=== PATIENT | female | born 1965 | race Caucasian/White ===

== ENCOUNTER 2016-04-05 05:48 | Inpatient (IN) | payer BC ==
[2016-03-30 13:26] LABS: HEMATOCRIT 39.2 % (36.0-48.0); HEMOGLOBIN 13.2 g/dL (12.0-16.0)
[2016-03-31 02:45] LABS: BUN (BLOOD UREA NITROGEN) 16 MG/DL (6-23); CALCIUM, SERUM 8.8 MG/DL (8.5-10.4); CHLORIDE, SERUM 99 MMOL/L (96-112); CO2 (CARBON DIOXIDE) 28 MMOL/L (24-34); GFR AFRICAN AMERICAN 76 ML/MIN (>=60); GFR NON AFRICAN AMERICAN 66 ML/MIN (>=60); POTASSIUM, SERUM 4.4 MMOL/L (3.5-5.3); SODIUM, SERUM 137 MMOL/L (135-148)
[2016-03-31 02:46] LABS: GLUCOSE, SERUM 400 MG/DL (60-99)
--- NOTE | ~2016-04-05 | CN ---
Consultation Report [facility] [address] [place]. [address] NAME: EMILY EVERETT : 65 STATUS : ADM IN PAT#: [id number] AGE: 50 ADM/REG DATE : 04/05/16 MR#: [id number] REPORT SERV DATE: 04/06/16 DICTATED BY: OMAR MINAYA DATE: 04/05/16 REPORT STATUS : Draft TRANSCRIBED BY: MODL DATE: 04/05/16 DATE OF CONSULTATION: REASON FOR ADMISSION: L5 through S1 anterior lumbar diskectomy and fusion with L5-S1 revision by Dr. Rhodes. REASON FOR CONSULT: Diabetes management. NURSING TEACHER: Dr. Simon Grijalva. PSYCHIATRIST: Dr. Joaquin Peralta. CHIEF COMPLAINT: "I came here for back surgery." HISTORY OF PRESENT ILLNESS: A 50-year-old white female with a history of insulin-dependent diabetes with retinopathy along with hypothyroidism, hiatal hernia, bipolar disease with major depressive disorder, managed by Dr. Peralta on lithium, hyperlipidemia, presented to surgery today. Hospitalist was consulted for diabetes management. The patient states that her sugars are usually in the 170s on up, not very well controlled. She states that her last hemoglobin A1c was around 9% that was checked several months ago. She says she takes her glargine insulin usually in the morning time. She has not had any at all today and her last dose was the morning of this 04/04/2016. She has had a couple of elevated sugar readings in this hospital. Otherwise, the patient denies any chest pain, shortness of breath, fever, chills, nausea, vomiting, or diarrhea. REVIEW OF SYSTEMS: As per HPI, otherwise 10-point systems are reviewed are negative. PAST MEDICAL HISTORY: Insulin diabetes with retinopathy, goiter, hypothyroidism, hiatal hernia, bipolar disease with major depressive disorder, on lithium and citalopram, hyperlipidemia, mild nonobstructive LAD. PAST SURGICAL HISTORY: She had six trigger finger surgeries, carpal tunnel surgery, bilateral shoulder surgery, hysterectomy, breast reduction. SOCIAL HISTORY: She denies smoking. She does drink one wine cooler one to two times per week. She has just recently moved from [place], [place] in about 1-1/2 years ago with her as her children are all grown up. She is a teacher currently. FAMILY HISTORY: Multiple relatives with diabetes. ALLERGIES: NORTRIPTYLINE WHICH CAUSES A RASH. MEDICATIONS: Include Lipitor 40 mg at bedtime, Celexa 20 mg daily, insulin aspart sliding scale, insulin glargine 53 units in the morning, levothyroxine 137 mcg daily, lithium Consultation Report [facility] [address] [place]. [address] NAME: EMILY EVERETT : 65 STATUS : ADM IN PAT#: [id number] AGE: 50 ADM/REG DATE : 04/05/16 MR#: [id number] REPORT SERV DATE: 04/06/16 DICTATED BY: OMAR MINAYA DATE: 04/05/16 REPORT STATUS : Draft TRANSCRIBED BY: JESSICA DATE: 04/05/16 carbonate 450 mg daily and 450 mg at bedtime, naproxen p.r.n., Prilosec 40 mg daily, and multivitamins. PHYSICAL EXAMINATION: VITAL SIGNS: Pending. GENERAL: She is no acute distress. Alert and oriented x3. Very pleasant. HEENT: Normocephalic and atraumatic head. Extraocular muscles are intact. Oropharynx is clear. NECK: Supple. No JVD. CARDIAC: Regular rhythm. No murmurs, rubs, or gallops. PULMONARY: Clear to auscultation bilaterally. ABDOMEN: Soft, nontender. Positive bowel sounds. It is obese. EXTREMITIES: Show no clubbing, cyanosis, or edema. SKIN: Warm and dry. There is a DELIA drain. NEUROLOGIC: No focal deficits. PSYCHIATRIC: The patient is cooperative. Mood is appropriate. She is very pleasant. LABS: Shows a white blood cell count of 20,000, glucose of 286. IMPRESSION: 1. Poorly-controlled insulin-dependent diabetes with retinopathy. 2. Bipolar with major depressive disorder, on lithium and citalopram. 3. Goiter with hypothyroidism. 4. Hyperlipidemia. 5. Hiatal hernia. 6. Obesity. 7. Mild nonobstructive left anterior descending. PLAN: The plan is to restart her home insulin, but change her glargine to evening time, as she has not had any glargine in over 24 hours along with adding a sliding scale level 2 insulin with before meals and h.s. Check at before meals and h.s. We will resume her other home medications and obtain a lithium level. We will continue to follow. Thank very much for this consult. NIKKI/JESSICA Omar Minaya MD / [id number] CC: Consultation Report [address] [address] NAME: EMILY EVERETT : 65 STATUS : ADM IN PAT#: [id number] AGE: 50 ADM/REG DATE : 04/05/16 MR#: [id number] REPORT SERV DATE: 04/06/16 DICTATED BY: OMAR MINAYA DATE: 04/05/16 REPORT STATUS : Draft TRANSCRIBED BY: JESSICA DATE: 04/05/16 Aditya Rhodes, DO Simon Morris MD Stephan Becker, MD
--- NOTE | ~2016-04-05 | DS ---
Discharge Summary [facility] [address] [place]. [address] NAME: EMILY EVERETT : 65 STATUS : DIS IN PAT#: [id number] AGE: 50 ADM/REG DATE : 04/05/16 MR#: [id number] REPORT SERV DATE: 04/17/16 DICTATED BY: ADITYA RHODES DATE: 04/16/16 REPORT STATUS : Draft TRANSCRIBED BY: JESSICA DATE: 04/16/16 Data Collection from hospitalization DISCHARGE DIAGNOSES: 1. L5-S1 pseudoarthrosis with lumbar disk disease and intractable back pain. 2. Diabetes. 3. Osteoarthritis. 4. History of heart attack. 5. Cardiac murmur. 6. Depression. 7. Hypercholesterolemia. 8. Hypothyroidism. 9. Migraine headaches. 10.Gastric reflux. 11.Sleep apnea. 12.Bipolar disease. 13.Retinopathy. 14.Goiter. CONSULTATIONS: Dr. Hugo Minaya. Dr. Deon López. PROCEDURES: 1. Anterior approach retroperitoneal exposure of L5-S1, 04/05/2016. 2. Stage I removal of previously placed interbody fusion cage, L5-S1. Anterior lumbar interbody fusion, L5-S1. Placement of Medtronic PEEK cage screw construct with allograft bone matrix and bone morphogenetic protein with screws through the interbody device into the L5 and S1 vertebral bodies, stage II L5-S1 revision laminectomy, bilateral foraminotomies, removal of previously placed L5-S1, pedicle screw instrumentation, revision L5-S1, pedicle screw instrumentation bilaterally, local morcellized autograft, allograft bone matrix, use of neuromonitoring, use of intraoperative O-arm CT scan with computer navigation, 04/05/2016. PATHOLOGY: Lumbar spine removal and repair-orthopedic hardware (gross assessment). Fragmented bone cartilage and soft tissue. No evidence was seen of an infectious or neoplastic process. DISCHARGE MEDICATIONS: Lipitor 40 mg at bedtime, Celexa 20 mg daily, Flexeril 10 mg every eight hours as needed, NovoLog injection insulin as instructed, Lantus injection insulin 53 units daily subcutaneously, levothyroxine 137 mcg daily, Eskalith ER 450 mg daily and 450 mg at bedtime, Aleve 220 mg every 12 hours, Prilosec 40 mg daily, Percocet 5/325 one to two tablets every four hours as needed, vitamins as instructed. CONDITION ON DISCHARGE: Stable. DISPOSITION: The patient was discharged home on a full liquid diet with activities as instructed. She would follow up with me two weeks following discharge. She would follow up with Dr. Sunil Norman one to two weeks following discharge. Discharge Summary [facility] [address] [place]. [address] NAME: EMILY EVERETT : 65 STATUS : DIS IN PAT#: [id number] AGE: 50 ADM/REG DATE : 04/05/16 MR#: [id number] REPORT SERV DATE: 04/17/16 DICTATED BY: ADITYA RHODES DATE: 04/16/16 REPORT STATUS : Draft TRANSCRIBED BY: JESSICA DATE: 04/16/16 HOSPITAL COURSE: This is a 50-year-old female, who had undergone a previous L5-S1 transforaminal lumbar interbody fusion on 07/24/2014 in [place]. Preoperative studies had shown a right L5 loose screws that did appear to be impinging upon one of the iliac vessels on the right side with signs of pseudoarthrosis at L5-S1. Treatment options were discussed and it was elected to proceed with surgical intervention. She was admitted to the hospital at this time for further evaluation and treatment. Upon admission, she was taken to the operating room, where she underwent the above-mentioned procedure by myself and Dr. Deon López. She tolerated this well. There were no complications. Postoperatively, she was seen by Dr. Hugo Minaya. The patient said her last hemoglobin A1c was around 9% that had been checked several months prior to this admission. We were going to restart her home insulin, but changed her glargine to evening time as she has not had any glargine in over 24 hours along with adding level 2 sliding scale insulin before meals and at bedtime. We would obtain a lithium level and resume her other home medications. On postop day one, the Mcclain catheter was removed. She was evaluated by Physical Therapy. Her abdomen was soft. On 04/07/2016, she did have some nausea and vomiting. She had positive bowel sounds. She was changed to Dilaudid. Over the next couple of days, her drain was removed. She stated that her preoperative radiculopathy had improved. Reglan had been added to her regimen. Her nausea and vomiting resolved. She was doing well with physical therapy. Discharge planning was performed. She was increasing her activity level. She had not passed flatus or had a bowel movement. Dulcolax suppository was given. On 04/09/2016, she was feeling better. She was passing flatus. She was tolerating full liquids. Discharge instructions were given. Due to her improved and stable condition, she was discharged home with the above-stated instructions. Information collected by: Ani Childs I submit the above information as my discharge summary. CHAPARRO/JESSICA Aditya Rhodes DO / [id number] CC: DO Sunil Fang DO Michael Greer, M.D.
--- NOTE | ~2016-04-05 | OP ---
Record Of Operation [facility] [address] [place]. [address] NAME: EMILY EVERETT : 65 STATUS : ADM IN PAT#: [id number] AGE: 50 ADM/REG DATE : 04/05/16 MR#: [id number] REPORT SERV DATE: 04/05/16 DICTATED BY: DEON GAMINO DATE: 04/05/16 REPORT STATUS : Draft TRANSCRIBED BY: MODL DATE: 04/05/16 DATE OF PROCEDURE: 04/05/2016 PREOPERATIVE DIAGNOSIS: Per Dr. Rhodes. POSTOPERATIVE DIAGNOSIS: Per Dr. Rhodes. SURGERY PERFORMED: Anterior approach retroperitoneal exposure of L5-S1. SURGEON: Deon Gamino M.D. ASSIST: Laurie. DESCRIPTION OF PROCEDURE: The patient was placed under general endotracheal anesthesia. The abdomen was prepped and draped in sterile fashion. An incision was made left of the midline beginning just at the umbilicus and carried down to the pubis, carried through the skin and subcutaneous tissue. The anterior rectus fascia was opened left of the midline and rectus muscle retracted laterally. Retroperitoneal space was entered using blunt dissection. Retroperitoneal contents were retracted using the Bookwalter retractor. The contents were protected using wet laparotomy sponges. The L5-S1 space was exposed using the pusher and the suction tubing. The L5-S1 space was exposed. The sacral vessels doubly ligated with silk and divided. Continued dissection done underneath both iliac veins to ensure that the previously placed posterior screws and instrumentation did not impale into the iliac veins. This was inspected. Additional films were done showing that there was no evidence of injury to the iliac vein. The procedure then turned over to Dr. Rhodes. When he completed the orthopedic portion, the area was visualized. Hemostasis was achieved. Retroperitoneal contents returned to the natural position. The abdomen closed using #1 running PDS suture. A small catheter placed beneath the fascia for postoperative Marcaine infusion. Subcutaneous tissue closed with 3-0 Vicryl, skin closed with 3-0 Monocryl subcuticular suture. Sterile dressings were applied. Estimated blood loss opening and closing approximately 50 to 60 mL. Sponge and needle count correct x3, and fluoroscopy of the abdomen revealing no laparotomy sponges or instrumentation. MG/MODL Deon Gamino M.D. / [id number] CC: Aditya Rhodes DO
--- NOTE | ~2016-04-05 | PREOPHP ---
PreOp History and Physical [facility] [address] [facility] [place]. [address] NAME: EMILY EVERETT : 65 STATUS : ADM IN PAT#: [id number] AGE: 50 ADM/REG DATE : 04/05/16 MR#: [id number] REPORT SERV DATE: 04/05/16 DICTATED BY: ADITYA RHODES DATE: 04/05/16 REPORT STATUS : Draft TRANSCRIBED BY: JESSICA DATE: 04/05/16 CHIEF COMPLAINT: Back pain and bilateral lower extremity pain and paresthesias. HISTORY OF PRESENT ILLNESS: The patient is a 50-year-old who had a previous L5-S1 transforaminal lumbar interbody fusion on 07/24/2014 in [place]. Preoperative studies have shown a right L5 loose screw that does appear to be impinging upon on one of the iliac vessels on the right side with signs of pseudoarthrosis at L5-S1. After the discussion of risks and benefits, the patient elected to proceed with surgical intervention. REVIEW OF SYSTEMS: She denies chest pain, shortness of breath, or bowel or bladder changes. ALLERGIES: INCLUDE NORTRIPTYLINE. HOME MEDICATIONS: Include atorvastatin, citalopram, cyclobenzaprine, Lantus, Synthroid, lithium, NovoLog, simvastatin, and tramadol. PAST MEDICAL HISTORY: Includes osteoarthritis, history of heart attack, cardiac murmur, depression, diabetes, high cholesterol, hyperthyroidism, migraine headaches, gastric reflux, and sleep apnea. PHYSICAL EXAMINATION: VITALS: Height 5 feet 2 inches, weight 215, and BMI 39.3. GENERAL: The patient is healthy appearing, in no acute distress. PSYCH: Alert and oriented x3. Normal mood and affect. Gait is somewhat antalgic. VASCULAR: No extremity swelling. SPINE: Decreased lumbar range of motion. HEART: Regular rate and rhythm. LUNGS: Clear to auscultation. ABDOMEN: Soft, nontender, and nondistended with good bowel sounds. BREASTS AND RECTAL: Both deferred. NEUROLOGIC: Strength in the lower extremities remains intact with 5/5 motor strength bilaterally. No focal deficits. IMAGING: I have reviewed plain x-rays as well as CT scan. CT does suggest pseudoarthrosis at L5-S1 with a loose right L5 screw with impingement upon the iliac vessel. This was discussed with Dr. López from Vascular Surgery. ASSESSMENT: Pseudoarthrosis with screw impinging on the iliac vessel. PLAN: The patient presents today for surgical intervention. Consent was obtained. All questions were answered. She is ready to proceed with surgical intervention. MONICA/JESSICA PreOp History and Physical [address] [address] NAME: EMILY EVERETT : 65 STATUS : ADM IN PAT#: [id number] AGE: 50 ADM/REG DATE : 04/05/16 MR#: [id number] REPORT SERV DATE: 04/05/16 DICTATED BY: ADITYA RHODES DATE: 04/05/16 REPORT STATUS : Draft TRANSCRIBED BY: JESSICA DATE: 04/05/16 Aditya Rhodes DO / [id number] CC: DO Sunil Fang DO
--- NOTE | ~2016-04-05 | OP ---
Record Of Operation [facility] [address] [place]. [address] NAME: EMILY EVERETT : 65 STATUS : ADM IN PAT#: [id number] AGE: 50 ADM/REG DATE : 04/05/16 MR#: [id number] REPORT SERV DATE: 04/05/16 DICTATED BY: ADITYA RHODES DATE: 04/05/16 REPORT STATUS : Draft TRANSCRIBED BY: MODYoanna DATE: 04/05/16 DATE OF PROCEDURE: 04/05/2016 PREOPERATIVE DIAGNOSIS: L5-S1 pseudoarthrosis with lumbar disk disease and intractable back pain. POSTOPERATIVE DIAGNOSIS: L5-S1 pseudoarthrosis with lumbar disk disease and intractable back pain. TWO-STAGED PROCEDURE: Stage #1: 1. Removal of previously placed interbody fusion cage, L5-S1. 2. Anterior lumbar interbody fusion, L5-S1. 3. Placement of Medtronic PEEK cage screw construct with allograft bone matrix and bone morphogenic protein with screws through the interbody device into the L5 and S1 vertebral bodies. Surgeons for stage #1: Dr. Rhodes and Dr. López from Vascular Surgery for the approach and closure, he will dictate separately. Stage #2: 1. L5-S1 revision laminectomy, bilateral foraminotomies. 2. Removal of previously placed L5-S1 pedicle screw instrumentation. 3. Revision L5-S1 pedicle screw instrumentation bilaterally. 4. Local morcellized autograft. Allograft bone matrix. 5. Use of neuromonitoring. 6. Use of intraoperative O-arm CT scan with computer navigation. Surgeon for stage #2: Just Dr. Rhodes. ANESTHESIA: General. ESTIMATED BLOOD LOSS: Total for both procedures, 250 mL. COMPLICATIONS: None. INDICATIONS: The patient is a 50-year-old with intractable back pain. Failed conservative treatment. Had a previous L5-S1 posterior interbody fusion that went on to pseudoarthrosis. After discussion of risks and benefits, elected to proceed with surgical intervention. PROCEDURE IN DETAIL: Identified the patient in the holding area. Consent was obtained. Went to the operating room. Underwent general anesthesia with endotracheal intubation. Prepped and draped in the usual sterile fashion. Operative safety pause was performed and then we proceeded. The anterior approach to the L5-S1 level was performed by Dr. López, dictated separately. A spinal needle was placed in the L5-S1 interspace and a lateral fluoroscopic image used to verify the operative level. A knife was used to perform an annulotomy. Disk material removed with the pituitary. Previously placed interbody PEEK graft was identified and was found to be loose with pseudoarthrosis. No signs of solid fusion. The graft was removed with a pituitary. Endplates were prepared with curettes, Record Of Operation [facility] [id number] [place]. [address] NAME: EMILY EVERETT : 65 STATUS : ADM IN PAT#: [id number] AGE: 50 ADM/REG DATE : 04/05/16 MR#: [id number] REPORT SERV DATE: 04/05/16 DICTATED BY: ADITYA RHODES DATE: 04/05/16 REPORT STATUS : Draft TRANSCRIBED BY: JESSICA DATE: 04/05/16 rasp, and a cutting bur. Trial spacers implanted. Then, a Medtronic PEEK cage construct with screws placed through the inner spacer into the L5 and S1 vertebral bodies. It was placed with allograft bone matrix and bone morphogenic protein. Cover plate was applied. Final AP and lateral fluoroscopic images were obtained. Irrigation was performed. Closure was performed by Dr. López. Second stage of the procedure: The patient was turned to the prone position, prepped and draped in usual sterile fashion. Operative safety pause was performed, then we proceeded with surgery. A midline longitudinal incision was made at L5-S1, taken down to the fascial layer. Paraspinous muscle subperiosteally elevated. Previously placed instrumentation was identified at the L5-S1 level. Set screws were removed. Rods were removed. There was found to be gross motion and looseness on the screws. They were each removed. The right S1 screw was fractured. The proximal portion was removed. The distal portion remained in solid bone and was left in place. O-arm registration frame was applied to the spinous process. O-arm was brought in for intraoperative CT scan. Computer registration materials were verified under computer guidance. Bilateral new pedicle screws were placed at L5 and S1 bilaterally. O-arm was brought back in for a repeat scan to verify good placement of all instrumentation. Rods were selected and placed over the screws. Set screws placed and final tightened. A revision laminectomy and foraminotomies were performed with a Kerrison and the L5 and S1 nerve roots were free of compression. A high-speed decorticating adolfo was used to decorticate the spinous processes and remaining bony surfaces at L5-S1. Irrigation performed. Hemostasis achieved. Local morcellized autograft and allograft bone matrix packed over the decorticated surfaces at L5-S1 bilaterally. A subfascial drain was placed. A gram of vancomycin powder sprinkled over the surgical wound. Layered closure performed. Sterile dressings applied. The patient was awoken and extubated, taken to the recovery room in stable condition. OPERATIVE FINDINGS: L5-S1 pseudoarthrosis. No sustained neuromonitoring alerts. JCE/MODL Aditya Rhodes DO / [id number] CC: Aditya Rhodes DO
[~2016-04-05 05:48] MED LIST: ALEVE220 MG PO; ASAB PO; CELEXA20 PO; ESKACR PO; LANTUS SC; LEVOTHYROXIN137 MCG PO; LIPITOR40 PO; NOVOLOG SC; PRILOSEC40 MG PO; SEVERAL VITAMINS
[2016-04-05 06:46] LABS: BUN (BLOOD UREA NITROGEN) 15 MG/DL (6-23); CALCIUM, SERUM 9.1 MG/DL (8.5-10.4); CHLORIDE, SERUM 105 MMOL/L (96-112); CO2 (CARBON DIOXIDE) 29 MMOL/L (24-34); CREATININE 0.83 MG/DL (0.55-1.02); GFR AFRICAN AMERICAN 95 ML/MIN (>=60); GFR NON AFRICAN AMERICAN 82 ML/MIN (>=60); POTASSIUM, SERUM 4.2 MMOL/L (3.5-5.3); SODIUM, SERUM 139 MMOL/L (135-148)
[2016-04-05 06:48] LABS: GLUCOSE, SERUM 165 MG/DL (60-99)
[2016-04-05 13:37] LABS: BASOPHILS 0 %; EOSINOPHILS 0 %; EOSINOPHILS ABSOLUTE 0.01 10/3/uL (0.0-0.53); HEMOGLOBIN 12.2 g/dL (12.0-16.0); IMMATURE GRANULOCYTES 0.3 %; IMMATURE GRANULOCYTES ABSOLUTE 0.06 10/3/uL (0.0-0.11); LYMPHOCYTES 8.6 %; LYMPHOCYTES ABSOLUTE 1.73 10/3/uL (0.67-4.30); MEAN CORPUSCULAR HEMOGLOB 28.8 pg (26.0-34.0); MEAN CORPUSCULAR VOLUME 87.5 fL (80-100); MEAN PLATELET VOLUME 10.4 fL (9.2-13.0); MONOCYTES 1.6 %; MONOCYTES ABSOLUTE 0.33 10/3/uL (0.21-1.20); NEUTROPHILS 89.5 %; NEUTROPHILS ABSOLUTE 17.99 10/3/uL (2.02-8.40); PLATELET COUNT 313 10/3/uL (150-400); RBC DISTRIBUTION WIDTH 12.7 % (12.0-16.0); RED CELL COUNT 4.23 10/6/uL (4.0-5.6)
[2016-04-05 13:40] LABS: MANUAL DIFF NO %; WHITE BLOOD CELLS 20.1 10/3/uL (4.5-10.5)
[2016-04-05 13:45] LABS: BUN (BLOOD UREA NITROGEN) 17 MG/DL (6-23); CALCIUM, SERUM 8.4 MG/DL (8.5-10.4); CHLORIDE, SERUM 104 MMOL/L (96-112); CO2 (CARBON DIOXIDE) 27 MMOL/L (24-34); GFR AFRICAN AMERICAN 76 ML/MIN (>=60); GFR NON AFRICAN AMERICAN 66 ML/MIN (>=60); POTASSIUM, SERUM 3.9 MMOL/L (3.5-5.3); SODIUM, SERUM 139 MMOL/L (135-148)
[2016-04-05 13:46] LABS: GLUCOSE, SERUM 286 MG/DL (60-99)
[2016-04-06 04:31] LABS: BASOPHILS 0.1 %; BASOPHILS ABSOLUTE 0.01 10/3/uL (0.0-0.16); EOSINOPHILS 0 %; HEMATOCRIT 36.6 % (36.0-48.0); HEMOGLOBIN 12.1 g/dL (12.0-16.0); IMMATURE GRANULOCYTES 0.4 %; IMMATURE GRANULOCYTES ABSOLUTE 0.05 10/3/uL (0.0-0.11); LYMPHOCYTES 9.7 %; LYMPHOCYTES ABSOLUTE 1.34 10/3/uL (0.67-4.30); MANUAL DIFF NO %; MEAN CORPUS HGB CONC 33.1 g/dL (32.0-36.0); MEAN CORPUSCULAR HEMOGLOB 29.8 pg (26.0-34.0); MEAN CORPUSCULAR VOLUME 90.1 fL (80-100); MEAN PLATELET VOLUME 10.4 fL (9.2-13.0); MONOCYTES 8.7 %; NEUTROPHILS 81.1 %; NEUTROPHILS ABSOLUTE 11.19 10/3/uL (2.02-8.40); PLATELET COUNT 313 10/3/uL (150-400); RBC DISTRIBUTION WIDTH 12.7 % (12.0-16.0); RED CELL COUNT 4.06 10/6/uL (4.0-5.6); WHITE BLOOD CELLS 13.8 10/3/uL (4.5-10.5)
[2016-04-06 04:45] LABS: A/G RATIO 0.8 (0.7-1.9); ALBUMIN 2.8 G/DL (3.5-5.0); ALKALINE PHOSPHATASE 59 U/L (45-117); BUN (BLOOD UREA NITROGEN) 15 MG/DL (6-23); CALCIUM, SERUM 8.3 MG/DL (8.5-10.4); CHLORIDE, SERUM 104 MMOL/L (96-112); CO2 (CARBON DIOXIDE) 30 MMOL/L (24-34); CREATININE 0.96 MG/DL (0.55-1.02); GFR AFRICAN AMERICAN 80 ML/MIN (>=60); GFR NON AFRICAN AMERICAN 69 ML/MIN (>=60); GLUCOSE, SERUM 239 MG/DL (60-99); PHOSPHORUS, SERUM 2.9 MG/DL (2.5-4.5); POTASSIUM, SERUM 4.2 MMOL/L (3.5-5.3); SGOT(AST) 22 U/L (5-40); SGPT(ALT) 28 U/L (5-65); SODIUM, SERUM 140 MMOL/L (135-148); TOTAL BILIRUBIN 0.5 MG/DL (0-1.2); TOTAL PROTEIN 6.5 G/DL (6.0-8.5)
[2016-04-06 04:49] LABS: GLOBULIN 3.7 G/DL (2.5-4.1)
[2016-04-09 05:13] LABS: BUN (BLOOD UREA NITROGEN) 10 MG/DL (6-23); CALCIUM, SERUM 9.2 MG/DL (8.5-10.4); CHLORIDE, SERUM 104 MMOL/L (96-112); CO2 (CARBON DIOXIDE) 30 MMOL/L (24-34); CREATININE 0.79 MG/DL (0.55-1.02); GFR AFRICAN AMERICAN 101 ML/MIN (>=60); GFR NON AFRICAN AMERICAN 87 ML/MIN (>=60); GLUCOSE, SERUM 114 MG/DL (60-99); POTASSIUM, SERUM 3.9 MMOL/L (3.5-5.3); SODIUM, SERUM 141 MMOL/L (135-148)
[2016-04-09 05:32] LABS: BASOPHILS 0.1 %; BASOPHILS ABSOLUTE 0.01 10/3/uL (0.0-0.16); EOSINOPHILS 3.6 %; EOSINOPHILS ABSOLUTE 0.35 10/3/uL (0.0-0.53); HEMATOCRIT 33.8 % (36.0-48.0); IMMATURE GRANULOCYTES 0.2 %; IMMATURE GRANULOCYTES ABSOLUTE 0.02 10/3/uL (0.0-0.11); LYMPHOCYTES 22.5 %; LYMPHOCYTES ABSOLUTE 2.16 10/3/uL (0.67-4.30); MEAN CORPUS HGB CONC 32.5 g/dL (32.0-36.0); MEAN CORPUSCULAR HEMOGLOB 29.3 pg (26.0-34.0); MEAN CORPUSCULAR VOLUME 90.1 fL (80-100); MEAN PLATELET VOLUME 10.4 fL (9.2-13.0); MONOCYTES 8.2 %; MONOCYTES ABSOLUTE 0.79 10/3/uL (0.21-1.20); NEUTROPHILS 65.4 %; NEUTROPHILS ABSOLUTE 6.27 10/3/uL (2.02-8.40); PLATELET COUNT 349 10/3/uL (150-400); RBC DISTRIBUTION WIDTH 12.5 % (12.0-16.0); RED CELL COUNT 3.75 10/6/uL (4.0-5.6); WHITE BLOOD CELLS 9.6 10/3/uL (4.5-10.5)
[2016-04-09 05:36] LABS: MANUAL DIFF NO %
[2016-04-09] MEDS ORDERED: PCET PO (16:36)
[2016-04-09] MEDS ORDERED: FLEX PO (16:36)
== END 2016-04-09 17:24 | disposition home or self-care (01) | DRG 454 ==
LOC: SDC/OF 05:48 → PACU 13:06 → 3SO 15:31
PROVIDERS: Orthopaedic Surgery
PROC: 0SG30A0 Fusion of Lumbosacral Joint with Interbody Fusion Device, Anterior Approach, Anterior Column, Open Approach (ICD-10-PCS; principal; 2016-04-05 07:45)
PROC: 0SG30Z1 (ICD-10-PCS; 2016-04-05 07:45)
PROC: 4A11X4G Monitoring of Peripheral Nervous Electrical Activity, Intraoperative, External Approach (ICD-10-PCS; 2016-04-05 07:45)
DX: M96.0 Pseudarthrosis after fusion or arthrodesis (principal); K91.3 Postprocedural intestinal obstruction; E04.9 Nontoxic goiter, unspecified; E11.9 Type 2 diabetes mellitus without complications; F31.9 Bipolar disorder, unspecified; E03.9 Hypothyroidism, unspecified; E78.5 Hyperlipidemia, unspecified; K21.9 Gastro-esophageal reflux disease without esophagitis; K58.9 Irritable bowel syndrome, unspecified
CPT/HCPCS: 36415; 74000; 80048; 80053; 80178; 82962; 83036; 83735; 84100; 85014; 85018; 85025; 86850; 86900; 86901; 88300; 88304; 88311; 97116-GP; 97162-GP; A9270-GY; C1713; J0690; J1644; J2250; J2270; J2370; J2405; J2710; J2765; J3010; J3370

== ENCOUNTER → 2016-07-23 13:43 | Emergency (ER) | payer BC ==
[2016-07-23 12:08] LABS: BASOPHILS 0.2 %; BASOPHILS ABSOLUTE 0.02 10/3/uL (0.0-0.16); EOSINOPHILS 1.4 %; EOSINOPHILS ABSOLUTE 0.11 10/3/uL (0.0-0.53); HEMATOCRIT 41.7 % (36.0-48.0); HEMOGLOBIN 13.8 g/dL (12.0-16.0); IMMATURE GRANULOCYTES 0.1 %; IMMATURE GRANULOCYTES ABSOLUTE 0.01 10/3/uL (0.0-0.11); LYMPHOCYTES 27.3 %; MEAN CORPUS HGB CONC 33.1 g/dL (32.0-36.0); MEAN CORPUSCULAR HEMOGLOB 28.7 pg (26.0-34.0); MEAN CORPUSCULAR VOLUME 86.7 fL (80-100); MEAN PLATELET VOLUME 10.2 fL (9.2-13.0); MONOCYTES 4.6 %; MONOCYTES ABSOLUTE 0.37 10/3/uL (0.21-1.20); NEUTROPHILS 66.4 %; NEUTROPHILS ABSOLUTE 5.34 10/3/uL (2.02-8.40); PLATELET COUNT 297 10/3/uL (150-400); RBC DISTRIBUTION WIDTH 13.5 % (12.0-16.0); RED CELL COUNT 4.81 10/6/uL (4.0-5.6); WHITE BLOOD CELLS 8.1 10/3/uL (4.5-10.5)
[2016-07-23 12:10] LABS: MANUAL DIFF NO %
[2016-07-23 12:16] LABS: ASCORBIC ACID (UR NOT ORDER) NEG (NEG); BILIRUBIN, URINE NEGATIVE (NEG); ER URINALYSIS TAT 0 Hrs 11 Mins; KETONE, URINE NEGATIVE (NEG); LEUKOCYTE ESTERASE(NOT OR NEG (NEG); NITRITE (URINE) NEG (NEG); WBC (NOT ORDERED) (RFLEX) 1 (0-5)
[2016-07-23 12:25] LABS: A/G RATIO 0.9 (0.7-1.9); ALBUMIN 3.8 G/DL (3.5-5.0); ALKALINE PHOSPHATASE 80 U/L (45-117); BUN (BLOOD UREA NITROGEN) 16 MG/DL (6-23); CALCIUM, SERUM 9.4 MG/DL (8.5-10.4); CHLORIDE, SERUM 102 MMOL/L (96-112); CO2 (CARBON DIOXIDE) 31 MMOL/L (24-34); CREATININE 1.02 MG/DL (0.55-1.02); GFR AFRICAN AMERICAN 74 ML/MIN (>=60); GFR NON AFRICAN AMERICAN 64 ML/MIN (>=60); GLOBULIN 4.3 G/DL (2.5-4.1); POTASSIUM, SERUM 3.8 MMOL/L (3.5-5.3); SGOT(AST) 20 U/L (5-40); SGPT(ALT) 34 U/L (5-65); SODIUM, SERUM 136 MMOL/L (135-148); TOTAL BILIRUBIN 0.6 MG/DL (0-1.2); TOTAL PROTEIN 8.1 G/DL (6.0-8.5)
[2016-07-23 12:26] LABS: GLUCOSE, SERUM 163 MG/DL (60-99)
[~2016-07-23 13:43] MED LIST changes: +FLEX PO; +PCET PO
== END | disposition home or self-care (01) ==
LOC: ER 13:43
PROVIDERS: Hospitalist
DX: R10.11 Right upper quadrant pain (principal); R07.9 Chest pain, unspecified; R10.821 Right upper quadrant rebound abdominal tenderness; K21.9 Gastro-esophageal reflux disease without esophagitis; F31.9 Bipolar disorder, unspecified; E11.9 Type 2 diabetes mellitus without complications; Z88.8 Allergy status to other drugs, medicaments and biological substances; Z79.4 Long term (current) use of insulin; Z79.891 Long term (current) use of opiate analgesic; Z79.899 Other long term (current) drug therapy
CPT/HCPCS: 76705; 80053; 81001; 83690; 85025; 99284